=== PATIENT | male | born 1935 | race Caucasian/White ===

== ENCOUNTER → 2019-04-05 14:45 | Outpatient (CLI) | payer MEDICARE, BC, SELFPAY ==
--- NOTE | 2019-04-05 | LES_PTH ---
PATIENT: CHEMA HAYWOOD LOC: [facility] U#:[id number] AGE/SX: 89/M ROOM: RE04/05/[address]: Dr. Fidel Haywood MD : 1935 BED: DIS: SPEC #: [id number] RECD: 04/05/19 14:13 STATUS: KIZZY MARIBEL #: [id number] JAMAR: 04/05/19 00:[address]: Fidel Haywood DEPT: SURGICAL PATHOLOGY RECD BY: Rubina Melara ENTERED: 04/08/19 09:33 SP TYPE: Lesion OTHR DR: No Primary Care Phys Tissues: Skin of eyelid, NOS Procedures: Surgery Specimen Level IV HEADER OPERATION: Lesion excision, right lower lid PRE-OP DIAGNOSIS: Lesion excision, right lower lid TISSUE SUBMITTED: Lesion, right lower lid MICROSCOPIC DIAGNOSIS Right lower eyelid lesion, biopsy: Consistent with squamous papilloma. AM:[place] 04/09/19 MICROSCOPIC DESCRIPTION Slides are reviewed. GROSS DESCRIPTION Received in fixative is one container labeled with the patient's name and designated right lower lid. The specimen consists of a piece of bazan-white skin measuring 0.3 x 0.3 x 0.2 cm. The specimen is totally submitted in one cassette. / SJ:corona 04/08/19 TC:5 CPT: 24441
== END ==
PROVIDERS: Referring Provider Ophthalmology; Visit Provider Ophthalmology
DX: H02.89 Other specified disorders of eyelid (principal)
CPT/HCPCS: 88305